=== PATIENT | female | born 1930 | race Hispanic/Latino ===

== ENCOUNTER → 2016-12-18 | Outpatient (CLI) | payer MEDICARE, MEDICAID ==
--- NOTE | 2016-12-20 15:56 | REP ---
LEFT SHOULDER, COMPLETE: 12/18/2016. Clinical history: Trauma, periclavicular shoulder pain. Status post fall. Findings: Three views show a middle one-third to lateral one-third fracture of the shaft of the clavicle. There is soft tissue swelling above it. I do not see significant angulation. AC joint is not widened. Humeral head shows no fracture and the scapula and glenoid intact. Posterior ribs are seen and without focal lesion on this exam. Dual lead pacer is seen. Impression: 1. There is a fracture mid shaft to lateral one-third shaft of the clavicle with a half shaft width inferior displacement of the lateral fragment, but no significant angulation. AC joint with degenerative spurring, but no widening of the joint space. No other visible fracture. Signed by Marco Moyer MD 12/20/2016 05:10 P
--- NOTE | 2016-12-20 16:00 | REP ---
PA CHEST WITH LEFT RIBS: 12/18/2016. Comparison: Chest x-ray 11/30/2013 Clinical history: Trauma. Findings: PA chest. Dual lead pacer again noted with the left midchest with leads in the right atrium and right ventricle. S-shaped thoracolumbar scoliosis dextroconvex upper thoracic, levorotatory lower thoracolumbar spine. Underlying fibrosis and COPD. Heart has left ventricular configuration and some left atrial enlargement. The aorta is calcified at the arch, mildly tortuous, but following the course of the scoliotic spine. No effusion or dense consolidation. No gross pneumothorax. Left ribs: Clavicle shows no visible or displaced fracture. The AC joint with small spurs inferiorly, larger superiorly. There are degenerative changes at the inferior aspect of the glenohumeral joint. Appears to be a gastric PEG tube in the mid abdomen. Only limited views with the two views suggesting some anterolateral left rib fractures, but difficult to confidently discern on these images. I suspect the anterior third, fourth and fifth ribs may have fractures. Acuity unknown. There is some lateral pleural thickening. No effusion or pneumothorax. See the shoulder series report for other bones at shoulder girdle. Impression: 1. 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 No dense consolidation or reagan edema. No gross effusion or PTX. 2. Limited exam as the patient could not be positioned. I suspect anterior third, fourth and fifth ribs may have fractures. There is an S-shaped thoracolumbar scoliosis. Gastric PEG feeding tube. Signed by Marco Moyer MD 12/20/2016 05:11 P
== END ==
LOC: M ADAMS 10:09
PROVIDERS: ATTEND Physician Assistant
DX: M19.012 Primary osteoarthritis, left shoulder (principal); S42.022A Displaced fracture of shaft of left clavicle, initial encounter for closed fracture; X58.XXXA Exposure to other specified factors, initial encounter; Y92.89 Other specified places as the place of occurrence of the external cause; Y93.89 Activity, other specified; Y99.8 Other external cause status; J44.9 Chronic obstructive pulmonary disease, unspecified; J84.10 Pulmonary fibrosis, unspecified; Z95.0 Presence of cardiac pacemaker; Z96.89 Presence of other specified functional implants

== ENCOUNTER → 2017-01-13 | Outpatient (REF) | payer MEDICARE, MEDICAID | LOC: M LAB REF 13:37 | PROVIDERS: ATTEND Nurse Practitioner Adult Health | DX: R19.7 Diarrhea, unspecified (principal) ==

== ENCOUNTER → 2017-05-27 | Outpatient (REF) | payer MEDICARE, MEDICAID ==
[2017-05-29 08:07] LABS: LDL DIRECT 94 mg/dL (0-99)
== END ==
LOC: M LAB REF 16:32
DX: E78.00 Pure hypercholesterolemia, unspecified (principal)
CPT/HCPCS: 83721

== ENCOUNTER 2017-08-03 12:08 | Emergency (ER) | payer MEDICARE, MEDICAID | END 2017-08-03 13:07 | disposition home or self-care (01) | LOC: M ED 12:08 | DX: K94.29 Other complications of gastrostomy (principal); E11.9 Type 2 diabetes mellitus without complications | CPT/HCPCS: 99283 ==

== ENCOUNTER 2018-05-10 09:38 | Inpatient (IN) | payer MEDICARE, MEDICAID ==
[~2018-05-10] VITALS: Ht 147.3 cm; Wt 56.7 kg
[~2018-05-10 09:38] MED LIST: GLIP10TA6 PO; METOCLOPRAMIDE INJ 10MG/2ML VIAL (J2765) IV PRN; ONDANSETRON 4MG/2ML VIAL (J2405) IV PRN; PROMETHAZINE INJ 25 MG/ML VIAL (J2550) IV PRN; RAMI1CAP26 PO; SITA50TAB PO; TOUJ1.2I SC
[2018-05-10 09:56] VITALS: BP 144/78
[2018-05-10] MEDS ORDERED: DEXTROSE 50% 50 ML SYRINGE IV PRN (10:30)
[2018-05-10] MEDS ORDERED: GLUCOSE 4 GM CHEW TABLET PO PRN (10:30)
[2018-05-10] MEDS ORDERED: GLUCAGON FOR INJ 1 MG VIAL (J1610) SC PRN (10:30)
[2018-05-10] MEDS ORDERED: CHIL1SUS2 PEG (10:54)
[2018-05-10] MEDS ORDERED: LIDO2.5C15 TOP (10:54)
[2018-05-10] MEDS ORDERED: NYST1POW9 TOP (10:54)
[2018-05-10] MEDS ORDERED: TRAM50TA2 PEG (10:54)
[2018-05-10] MEDS ORDERED: TOUJ1.2I SC (10:54)
[2018-05-10] MEDS ORDERED: GLIP10TA6 PEG (10:54)
[2018-05-10] MEDS ORDERED: RAMI1CAP26 PEG (10:54)
[2018-05-10] MEDS ORDERED: SITA50TAB PEG (10:54)
[2018-05-10] MEDS: HumaLOG INSULIN (NovoLOG) PER UNIT SC SCH ×2 (12:00→17:03)
[2018-05-10] MEDS ORDERED: OCTREOTIDE ACETATE 100 MCG/ML VIAL (J2354) IV SCH (12:00)
[2018-05-10 14:00] VITALS: BP 142/78
[2018-05-10] MEDS ORDERED: LIDOCAINE 1% MDV 20ML VIAL As Ordered ONE (14:38)
[2018-05-10] MEDS: SODIUM CHLORIDE 0.9% INJ 10 ML SYR IV SCH (17:26)
[2018-05-10] MEDS: PANTOPRAZOLE 40MG INJ (PROTONIX) (C9113) IV SCH (17:26)
[2018-05-10] MEDS: OCTREOTIDE ACETATE 100 MCG/ML VIAL (J2354) IV SCH (17:26)
[2018-05-10 18:00] VITALS: BP 130/78
[2018-05-10] MEDS ORDERED: FAT EMULSION IV 20% 500 ML IV SCH (18:00)
[2018-05-10] MEDS ORDERED: MULTIVITAMIN -ADULT INJECTION 10 ML, CR/CU/SE/MN/ZN INJ 1 ML in AMINO AC/ELECTROLYTE/DE... IV SCH (18:00)
[2018-05-10] MEDS ORDERED: HumaLOG INSULIN (NovoLOG) PER UNIT SC SCH (18:00)
[2018-05-10 22:00] VITALS: BP 154/64
[2018-05-11] MEDS: OCTREOTIDE ACETATE 100 MCG/ML VIAL (J2354) IV SCH ×3 (00:39→17:55)
[2018-05-11] MEDS: HumaLOG INSULIN (NovoLOG) PER UNIT SC SCH ×4 (00:40→18:27)
[2018-05-11] MEDS: SODIUM CHLORIDE 0.9% INJ 10 ML SYR IV PRN (00:41)
[2018-05-11] MEDS: ACETAMINOPHEN TAB 650MG DOSE (2X325MG) PO PRN ×2 (01:12→18:13)
[2018-05-11 02:00] VITALS: BP 150/60
[2018-05-11 06:00] VITALS: BP 149/69
[2018-05-11] MEDS: SODIUM CHLORIDE 0.9% INJ 10 ML SYR IV SCH ×2 (07:23→18:00)
[2018-05-11] MEDS: PANTOPRAZOLE 40MG INJ (PROTONIX) (C9113) IV SCH (08:29)
--- NOTE | 2018-05-11 09:14 | REP ---
DOUBLE LUMEN PICC LINE INSERTION: The patient was referred for placement of double lumen PICC line. Informed consent was obtained from the patient. The right cephalic vein was identified in the upper arm using the Spine[employer] ultrasound device. Under sterile conditions and after satisfactory administration of local anesthesia, a double lumen PICC line was inserted and the tip was positioned into the right subclavian vein so that it would not interfere with the patient's pacemaker wires. Both lumens were flushed with heparinized solution and the skin entrance site was stabilized with appropriate dressings. Hemostasis was obtained and there were no immediate complications. 0.9 minutes fluoroscopy time utilized for the procedure. Electronically Signed by Andrew Ospina MD 05/11/2018 11:45 A
[2018-05-11 10:00] VITALS: BP 140/68
[2018-05-11 14:00] VITALS: BP 158/70
[2018-05-11 18:00] VITALS: BP 138/74
[2018-05-11] MEDS ORDERED: AMINO AC/ELECTROLYTE/DEX/CALC 2,000 ML IV SCH (18:00)
[2018-05-11] MEDS ORDERED: HumaLOG INSULIN (NovoLOG) PER UNIT SC SCH (18:00)
[2018-05-11] MEDS ORDERED: FAT EMULSION IV 20% 500 ML IV SCH (18:00)
--- NOTE | 2018-05-11 19:21 | IPN ---
DATE: 05/11/2018 The patient seems to be making some good progress overnight. She has been on TPN. She has been nothing by mouth with NG tube to gravity for this gastric fistula that has occurred overall the amount of drainage has substantially decreased. She is not having any pain at this site and when I look at the G tube site. It is almost completely healed at this time this with 24 hours of being nothing by mouth. She has been afebrile in no cellulitis or inflammation. It does not really seem to be much drainage at the site and the nurses have not changed the dressing today. IMPRESSION AND PLAN: The patient has a gastrocutaneous fistula and from my standpoint I do feel that it is warranted to keep her nothing by mouth TPN for right now. I do feel that it would be most reasonable to give her another several days of nothing by mouth until we get comfortable enough that she is not having any drainage then will clamp the G tube for 24 hours and see if that makes a difference and if that does not make any difference then slowly turning on some tube feeds may be the next step. She understands our current plan and will start out with continued nothing by mouth for right now.
[2018-05-11 22:00] VITALS: BP 144/68
[2018-05-12] MEDS: OCTREOTIDE ACETATE 100 MCG/ML VIAL (J2354) IV SCH ×3 (01:15→19:26)
[2018-05-12] MEDS: HumaLOG INSULIN (NovoLOG) PER UNIT SC SCH ×4 (01:15→19:26)
[2018-05-12 02:00] VITALS: BP 140/72
[2018-05-12 06:00] VITALS: BP 138/74
[2018-05-12] MEDS: SODIUM CHLORIDE 0.9% INJ 10 ML SYR IV SCH ×2 (06:00→19:27)
[2018-05-12] MEDS: PANTOPRAZOLE 40MG INJ (PROTONIX) (C9113) IV SCH (09:22)
[2018-05-12 10:00] VITALS: BP 152/70
--- NOTE | 2018-05-12 11:10 | IPN ---
DATE: 05/12/2018 The patient seems to be making some good progress at this time. Her drainage out of her previous gastrostomy tube site has been much better, slowing down very well and she has had no other complaints at this time. No pain at the site and it is almost completely healed. I anticipate probably another 24 hours and there will not be any significant drainage at this site and possibly we can start clamping the G tube. I would recommend that tomorrow we clamp it for 24 hours and if she tolerates this without any drainage, then we can start up tube feedings at 25 mL an hour and watch that overnight as well and if she does well with continuous feeds may be able to start her up on some bolus feeds the next day. But overall at this point, I think where making some good progress and I am hoping that this will settle down/heal up. The patient did not want any operative intervention for the hernia repair, etc. and if we want to give this a chance to heal I anticipate that we will need to continue on this relatively conservative/slow course for allowing this to heal.
[2018-05-12 14:00] VITALS: BP 144/64
[2018-05-12 18:00] VITALS: BP 152/72
[2018-05-12] MEDS ORDERED: FAT EMULSION IV 20% 500 ML IV SCH (18:00)
[2018-05-12] MEDS ORDERED: MULTIVITAMIN -ADULT INJECTION 10 ML, CR/CU/SE/MN/ZN INJ 1 ML in AMINO AC/ELECTROLYTE/DE... IV SCH (18:00)
[2018-05-12 22:00] VITALS: BP 142/75
[2018-05-13] MEDS: HumaLOG INSULIN (NovoLOG) PER UNIT SC SCH ×4 (00:16→18:06)
[2018-05-13] MEDS: OCTREOTIDE ACETATE 100 MCG/ML VIAL (J2354) IV SCH ×3 (00:16→17:00)
[2018-05-13 02:00] VITALS: BP 140/70
[2018-05-13] MEDS: SODIUM CHLORIDE 0.9% INJ 10 ML SYR IV SCH ×2 (05:26→17:02)
[2018-05-13 06:00] VITALS: BP 145/70
[2018-05-13] MEDS: PANTOPRAZOLE 40MG INJ (PROTONIX) (C9113) IV SCH (09:13)
[2018-05-13 10:00] VITALS: BP 135/57
--- NOTE | 2018-05-13 12:43 | IPNPDOC ---
Text Note Date of Service The patient was seen on 05/13/18. NOTE No acute events overnight. Her abd wound is much improved. There is no more drainage at all, and the dressing is completely dry. Denies nausea, emesis, fevers, or pains. VSSAF currently drain - 50 BM - 1 NAD abd - soft, nt, nd, g-tube fistula site is completely dry without any signs of inflammation or drainage A) 87y/o female with gastric fistula that appears to be resolved P) TPN clamp g tube today, and will start tube feeds tomorrow if tolerating it clamped. Pardeep Herman DO VS,Fishbone, I+O VS, Fishbone, I+O Vital Signs Date Time Temp Pulse Resp B/P (MAP) Pulse Ox O2 Delivery O2 Flow Rate FiO2 05/13/18 10:00 98.3 60 17 135/57 (83) 98 Room Air I&O- Last 24 Hours up to 6 AM 05/13/18 06:00 Intake Total 0 ml Output Total 125 ml Balance -125 ml PRABHU HERMAN DO May 13, 2018 12:43
[2018-05-13 14:00] VITALS: BP 140/55
[2018-05-13 18:00] VITALS: BP 145/59
[2018-05-13] MEDS ORDERED: AMINO AC/ELECTROLYTE/DEX/CALC 2,000 ML IV SCH (18:00)
[2018-05-13] MEDS ORDERED: FAT EMULSION IV 20% 500 ML IV SCH (18:00)
[2018-05-13 22:00] VITALS: BP 145/74
[2018-05-14] MEDS: HumaLOG INSULIN (NovoLOG) PER UNIT SC SCH ×4 (00:18→17:49)
[2018-05-14] MEDS: OCTREOTIDE ACETATE 100 MCG/ML VIAL (J2354) IV SCH ×3 (00:18→17:49)
[2018-05-14] MEDS: SODIUM CHLORIDE 0.9% INJ 10 ML SYR IV PRN ×2 (00:19→21:56)
[2018-05-14 02:00] VITALS: BP 147/73
[2018-05-14 06:00] VITALS: BP 153/77
[2018-05-14] MEDS: SODIUM CHLORIDE 0.9% INJ 10 ML SYR IV SCH ×2 (06:40→17:49)
[2018-05-14] MEDS: PANTOPRAZOLE 40MG INJ (PROTONIX) (C9113) IV SCH (09:55)
[2018-05-14 10:00] VITALS: BP 150/62
[2018-05-14] MEDS: ACETAMINOPHEN TAB 650MG DOSE (2X325MG) PO PRN (10:24)
--- NOTE | 2018-05-14 11:03 | IPNPDOC ---
Text Note Date of Service The patient was seen on 05/14/18. NOTE No acute events overnight. Her abd wound is improved without drainage. Denies nausea, emesis, fevers, or pains. VSSAF NAD abd - soft, nt, nd, g-tube fistula site is completely dry without any signs of inflammation or drainage A) 87y/o female with gastric fistula that appears to be resolved P) d/c TPN start glucerna 1.2 at 25/hr will d/c home tomorrow Pardeep Herman DO VS,Fishbone, I+O VS, Fishbone, I+O Vital Signs Date Time Temp Pulse Resp B/P (MAP) Pulse Ox O2 Delivery O2 Flow Rate FiO2 05/14/18 10:00 99.4 60 17 150/62 (91) 96 Room Air I&O- Last 24 Hours up to 6 AM 05/14/18 06:00 Intake Total 1140 ml Output Total 0 ml Balance 1140 ml PRABHU HERMAN DO May 14, 2018 11:03
[2018-05-14 14:00] VITALS: BP 151/76
[2018-05-14 18:00] VITALS: BP 143/71
[2018-05-14 22:00] VITALS: BP 144/66
[2018-05-15] MEDS: HumaLOG INSULIN (NovoLOG) PER UNIT SC SCH ×4 (00:31→18:11)
[2018-05-15] MEDS: D5W/0.45% SODIUM CHLORIDE 1,000 ML IV SCH ×2 (00:31→13:20)
[2018-05-15] MEDS: OCTREOTIDE ACETATE 100 MCG/ML VIAL (J2354) IV SCH ×3 (00:38→18:12)
[2018-05-15 02:00] VITALS: BP 138/72
[2018-05-15 06:00] VITALS: BP 130/62
[2018-05-15] MEDS: SODIUM CHLORIDE 0.9% INJ 10 ML SYR IV SCH ×2 (06:00→18:00)
[2018-05-15] MEDS: PANTOPRAZOLE 40MG INJ (PROTONIX) (C9113) IV SCH (08:07)
--- NOTE | 2018-05-15 09:51 | IPNPDOC ---
Text Note Date of Service The patient was seen on 05/15/18. NOTE No acute events overnight. Denies nausea, emesis, fevers, or pains. Last evening her fistula started to open back up and drain tube feeds from it. I had them place the g-tube back to gravity, and we will wait another couple days to restart feeds again. VSSAF NAD abd - soft, nt, nd, g-tube fistula site is completely dry again this am without any signs of inflammation or drainage A) 87y/o female with gastric fistula that opened up again last evening P) restart TPN hold tube feeds will follow Pardeep Herman DO VS,Fishbone, I+O VS, Fishbone, I+O Vital Signs Date Time Temp Pulse Resp B/P (MAP) Pulse Ox O2 Delivery O2 Flow Rate FiO2 05/15/18 06:00 97.6 68 18 130/62 (84) 99 Room Air I&O- Last 24 Hours up to 6 AM 05/15/18 06:00 Intake Total 715 ml Output Total 350 ml Balance 365 ml PRABHU HERMAN DO May 15, 2018 09:51
[2018-05-15 10:00] VITALS: BP 141/62
[2018-05-15 14:00] VITALS: BP 144/65
[2018-05-15] MEDS ORDERED: FAT EMULSION IV 20% 500 ML IV SCH (18:00)
[2018-05-15] MEDS ORDERED: MULTIVITAMIN -ADULT INJECTION 10 ML, CR/CU/SE/MN/ZN INJ 1 ML in AMINO AC/ELECTROLYTE/DE... IV SCH (18:00)
[2018-05-16] MEDS: OCTREOTIDE ACETATE 100 MCG/ML VIAL (J2354) IV SCH ×3 (00:55→17:50)
[2018-05-16] MEDS: HumaLOG INSULIN (NovoLOG) PER UNIT SC SCH ×4 (00:56→17:51)
[2018-05-16] MEDS: SODIUM CHLORIDE 0.9% INJ 10 ML SYR IV PRN (00:56)
[2018-05-16 02:00] VITALS: BP 115/76
[2018-05-16 06:00] VITALS: BP 157/65
[2018-05-16] MEDS: SODIUM CHLORIDE 0.9% INJ 10 ML SYR IV SCH ×2 (07:26→17:52)
[2018-05-16] MEDS: PANTOPRAZOLE 40MG INJ (PROTONIX) (C9113) IV SCH (08:32)
--- NOTE | 2018-05-16 09:45 | IPNPDOC ---
Text Note Date of Service The patient was seen on 05/16/18. NOTE No acute events overnight. Denies nausea, emesis, fevers, or pains. No more drainage from the g-tube site. VSSAF NAD abd - soft, nt, nd, g-tube fistula site is completely dry again this am without any signs of inflammation or drainage, however, there is a dry scab in the middle that I removed and beneath it there is a distinct opening through the skin. A) 87y/o female with gastric fistula P) TPN hold tube feeds will discuss with Dr. Ortega tomorrow when he returns. I fear that she may have epithelialized her fistula tract, and it may not close. He will likely attempt feeds one more time tomorrow, and if that does not work then she will need surgical repair. Pardeep Herman DO VS,[place], I+O VS, Fishbone, I+O Vital Signs Date Time Temp Pulse Resp B/P (MAP) Pulse Ox O2 Delivery O2 Flow Rate FiO2 05/16/18 06:00 96.5 63 18 157/65 (95) 91 Room Air I&O- Last 24 Hours up to 6 AM 05/16/18 06:00 Intake Total 1140 ml Output Total 500 ml Balance 640 ml PRABHU HERMAN DO May 16, 2018 09:45
[2018-05-16 10:00] VITALS: BP 126/60
[2018-05-16 14:00] VITALS: BP 140/62
[2018-05-16 18:00] VITALS: BP 140/82
[2018-05-16] MEDS ORDERED: FAT EMULSION IV 20% 500 ML IV SCH (18:00)
[2018-05-16] MEDS ORDERED: AMINO AC/ELECTROLYTE/DEX/CALC 2,000 ML IV SCH (18:00)
[2018-05-16 22:00] VITALS: BP 160/72
[2018-05-17] MEDS: OCTREOTIDE ACETATE 100 MCG/ML VIAL (J2354) IV SCH ×3 (01:02→17:00)
[2018-05-17] MEDS: HumaLOG INSULIN (NovoLOG) PER UNIT SC SCH ×4 (01:02→17:47)
[2018-05-17] MEDS: SODIUM CHLORIDE 0.9% INJ 10 ML SYR IV PRN (01:03)
[2018-05-17 02:00] VITALS: BP 144/68
[2018-05-17 06:00] VITALS: BP 150/74
[2018-05-17] MEDS: SODIUM CHLORIDE 0.9% INJ 10 ML SYR IV SCH ×2 (06:25→17:36)
[2018-05-17] MEDS: PANTOPRAZOLE 40MG INJ (PROTONIX) (C9113) IV SCH (09:03)
[2018-05-17 10:00] VITALS: BP 124/70
[2018-05-17 14:00] VITALS: BP 144/70
[2018-05-17 18:00] VITALS: BP 120/70
[2018-05-17] MEDS ORDERED: HumaLOG INSULIN (NovoLOG) PER UNIT SC SCH (18:00)
[2018-05-17] MEDS ORDERED: [UNRECOGNIZED DRUG - MIXTURE] IV SCH ×4 (18:00)
[2018-05-17] MEDS ORDERED: FAT EMULSION IV 20% 500 ML IV SCH (18:00)
[2018-05-17 22:00] VITALS: BP 128/70
[2018-05-18] MEDS: OCTREOTIDE ACETATE 100 MCG/ML VIAL (J2354) IV SCH ×3 (00:04→17:57)
[2018-05-18] MEDS: SODIUM CHLORIDE 0.9% INJ 10 ML SYR IV PRN (00:04)
[2018-05-18] MEDS: HumaLOG INSULIN (NovoLOG) PER UNIT SC SCH ×4 (00:04→17:58)
[2018-05-18 02:00] VITALS: BP 150/68
[2018-05-18 06:00] VITALS: BP 149/68
[2018-05-18] MEDS: SODIUM CHLORIDE 0.9% INJ 10 ML SYR IV SCH ×2 (06:03→17:58)
[2018-05-18] MEDS: PANTOPRAZOLE 40MG INJ (PROTONIX) (C9113) IV SCH (09:04)
[2018-05-18 10:00] VITALS: BP 132/52
--- NOTE | 2018-05-18 10:42 | HPE ---
DATE OF ADMISSION: 05/10/2018 HISTORY AND PHYSICAL: Patient is an 87-year-old female that is saw in the office a few weeks ago for a gastrocutaneous fistula. Had a previous gastrostomy tube placed that eroded through the abdominal wall causing a partially gastric incarcerated hernia in the epigastric area with a gastric fistula present. Had a secondary gastrostomy tube placed lateral to this. It has been unfortunately leaking out this gastrostomy tube. Had the PEG tube placed for a history of achalasia and had refused operative intervention for this and the family was trying avoid operative intervention unless absolutely necessary. She was seen in my office. We made some recommendations, some changes and a week later did not see any significant improvement except for some decreased drainage after having a few days of essentially a clear liquid diet via the gastrostomy (G) tube for hydration, and the patient's family noticed that the drainage decreased substantially. The hole seemed to start the heal and presents now for admission and discussion of trying to get this fistula to heal without operative intervention. Although, patient does definitely have some pain and discomfort when she is active, moving and bending over in the epigastric area. Most of the discussion is through her daughter who is translating for me. The past medical history is significant for a history of hypertension, hyperlipidemia, diabetes mellitus, heart disease, pacemaker implant, cholecystectomy, dilation and curettage, cataract surgery. Medications include the following: - glipizide - Glucerna - Januvia - ramipril - Toujeo - tramadol - as needed Tylenol PHYSICAL EXAMINATION: Reveals an 87-year-old female who looks stated age. HEENT is unremarkable. Neck: Supple without adenopathy. Lungs are clear to auscultation without crackles, wheezes or rhonchi. Heart is regular with a few irregular beats. Abdomen is soft, nondistended, nontender except around the previous G tube site that has some macerated skin in this area. Although, it actually looks better than it had when I saw her week ago on 05/01/2018, and decreased drainage. Her other gastrostomy tube is intact and functioning well. Otherwise, her abdomen is soft, nontender. IMPRESSION/PLAN: Patient has an epigastric hernia and gastric fistula. At this point, it appears that the site probably will heal with being nothing by mouth. I do feel that it may take some prolonged time and given the poor nutritional state that she has had prior to this, although without significant weight loss since the G tubes have been placed, my thought is that this skin should heal over. Unfortunately, I can feel the stomach right underneath this and thus it makes the fistula tract very short, which implies that it would be much more difficult to get this to heal and stay closed. However, I do feel that it is a reasonable option for her. They still would like to avoid operative intervention unless absolutely necessary. However, would be amenable to this should this continue to drain given the pain and discomfort that she has with it and the difficulty with care at the site. Otherwise, at this point, we will keep her nothing by mouth, IV fluids, and give her some octreotide to decrease his secretions. Will also start her on some total parenteral nutrition (TPN) and get a peripherally inserted central catheter (PICC) line placed. Will continue her on her meds as previously as necessary. Will see how she does. Hopefully closing up this hole and then once it is closed for 24-48 hours, then we will clamp the G tube, and then after clamping for 24 hours I would like to start her on some tube feeds on a constant feeding, and if she tolerates this, does not open up, then I anticipate we can try some bolus feeds and then discharge her thereafter. However, if this does not close or opens back up, I anticipate she will need some operative intervention, i.e. hernia repair, repair of gastric fistula.
--- NOTE | 2018-05-18 10:49 | IPN ---
DATE: 05/18/2018 The patient seems to be continuing to do well. Her daughter is here today and we have discussed more about the operative intervention that I plan on for her and, more importantly, given her medical issues I do feel that despite being a relatively reasonable operative candidate and I do feel that this is much more of an urgent case that operative intervention is necessary at this time, the recommendation will be for repair of the hernia. The big question that we have at this time and a lot of it will be determined intraoperatively is whether this fistula tract can be closed with some imbrication of the gastric wall or whether just stapling off a little corner of the stomach will be indicated at that time. In any case, I anticipate to repair the hernia and if there is no spillage and it is a relatively clean site we may be able to place some mesh as well with a small operative risk for perioperative infection. The daughter agrees to proceed with this and will discuss this further with her mother over the day and we will talk about this tomorrow in the preop holding area and answer any questions as necessary. They agree to proceed with operative repair tomorrow.
--- NOTE | 2018-05-18 11:06 | IPN ---
DATE: 05/17/2018 Patient had attempted restarting of the feeds after a few hours. However, the patient developed some bulging in the epigastric area and then all of a sudden decompressed via this fistula tract. I anticipate what happened is that the stomach gets incarcerated and once it gets incarcerated within this area and she moves it is similar to a closed loop that continues to fill up and then just finds this weak spot in the abdominal wall and essentially decompresses through this area. Unfortunately after an extensive discussion with the family, I do feel that it is reasonable to proceed with operative intervention for this and we will see if we cannot get her on the schedule for the next 24-48 hours, either or Tuesday this week, and thus, she has been back to nothing by mouth after she started draining again, and at this point it appears to have sealed over. There is nothing draining from it today and her abdomen is soft and it is nontender. She has been tolerating her total parenteral nutrition (TPN). We will continue her on the TPN, continue with nothing by mouth for right now and then we will plan on operative intervention with repair of this hernia.
--- NOTE | 2018-05-18 11:26 | CR.PDOC ---
General Date of Consultation: May 18, 2017 Consultation REASON FOR CONSULTATION/CHIEF COMPLAINT: Pre-op clearance prior to Epigastric hernia surgery Consult Requested by Dr Ortega HISTORY OF PRESENT ILLNESS: 87 y/o female who presented to the hospital for surgical repair of gastric fistula and epigastric hernia secondary to PEG tube placement for history of achalasia. ALLERGIES: Please see below. HOME MEDICATIONS: Please see below. PAST MEDICAL HISTORY: HTN, DLP, DM2, s/p pacemaker, CAD PAST SURGICAL HISTORY: cataract surgery, d&C, cholecystectomy, pacemaker placement FAMILY HISTORY: Non-contributory SOCIAL HISTORY: non-contributory REVIEW OF SYSTEMS: There is no family in the room present one exam, patient speaks minimal Tamazight, ROS difficult to obtain as such Patient can signal and verbalize no abdominal pain nor chest pain. PHYSICAL EXAMINATION: VITAL SIGNS: Please see below. GENERAL APPEARANCE: comfortable, laying in bed watching television HEENT: EOMI, nares patent b/l, moist mucus membranes RESPIRATORY: CTA b/l, no wheezing, rales or rhonchi CARDIOVASCULAR: normal s1 and s2., no murmurs, rubs or gallops ABDOMEN: soft, no distension, no rebound, no guarding, no pain to palpation, na bsx4, PEG in place without blood or pus exudation, appears clean and intact EXTREMITIES: no cyanosis, swelling or mottling NEUROLOGICAL: without focal deficit PSYCHIATRIC: affect appears to be appropriate LABORATORY DATA: Please see below. ASSESSMENT/PLAN: 1. DM2 -patients BS have not been controlled in house, she is on TPN and obtaining insulin through this however we will give 1x dose of Levermir long acting now 20 units SQ. Hold this tomorrow, will not schedule for AM. 2. HTN -BP appears acceptable, noted she is not on home medications in house -continue to monitor for now -EKG pending -CXR for pre-operative clearance pending 3. Chronic pain -patients home tramadol is not continued in house, she appears comfortable on exam today and not in any pain or discomfort 4. GERD/N/V -c/w Zofran and pantoprazole 5. Epigastric hernia and gastric fistula for surgical repair. patient is on TPN, NPO. Management as per surgery. 6. Preop clearance will get CXR and EKG. Patient does not have h/o chf, on going angina, no CKD, No h/o TIA or stroke. Provided EKG OK patient is at low cardiac risk for the proposed procedure. Pateint's sugar needs to be better controlled. Vital Signs/I&O Vital Signs Date Time Temp Pulse Resp B/P (MAP) Pulse Ox O2 Delivery O2 Flow Rate FiO2 05/18/18 06:00 98.7 63 18 149/68 (95) 94 05/17/18 18:00 Room Air I&O- Last 24 Hours up to 6 AM 05/18/18 06:00 Intake Total 90 ml Output Total 1323 ml Balance -1233 ml Laboratory Data Labs 24H Laboratory Tests 2 05/17/18 11:43: Bedside Glucose (Misc Panel) 463H 05/17/18 16:37: Bedside Glucose (Misc Panel) 389H 05/17/18 21:30: Bedside Glucose (Misc Panel) 378H 05/17/18 23:36: Bedside Glucose (Misc Panel) 399H 05/18/18 05:28: Bedside Glucose (Misc Panel) 502*H 05/18/18 05:33: Bedside Glucose (Misc Panel) 444H Allergies Coded Allergies: Metformin (Verified Adverse Reaction, Intermediate, SEVERE DIARRHEA, 05/10/18) NSAIDs (Verified Adverse Reaction, Intermediate, INCREASED SED RATE, 05/10/18) Home Medications Scheduled (Lidocaine/Prilocaine 2.5-2.5 %) 1 Cre Cre, 1 APLCT TOP BID, (Reported) APPLY AROUND ABDOMINAL WOUND (Toujeo Solostar) 300 Unit/Ml Inj, 28 UNIT SC DAILY, (Reported) Glipizide (Glipizide) 10 Mg Tab, 10 MG PEG BID, (Reported) Ramipril (Ramipril) 10 Mg Cap, 10 MG PEG DAILY, (Reported) Sitagliptin (Januvia) 50 Mg Tab, 50 MG PEG DAILY, (Reported) Scheduled PRN Acetaminophen (Childrens Acetaminophen) 160 Mg/5 Ml Susp, 15 ML PEG Q6H PRN for PAIN, (Reported) Nystatin (Nystatin Powder) 100,000 Unit/Gm Pow, 1 APLCT TOP QID PRN for RASH/ITCHING, (Reported) APPLY AROUND ABDOMINAL WOUND Tramadol HCl (Tramadol HCl) 50 Mg Tab, 50 MG PEG Q6H PRN for PAIN, (Reported) GME ATTESTATION GME ATTESTATION My faculty preceptor for this patient encounter was physically present during the encounter and was fully available. All aspects of the patient interview, examination, medical decision making process, and medical care plan development were reviewed and approved by the faculty preceptor. The faculty preceptor is aware and concurs with the plan as stated in the body of this note and will attest to such by his/her cosignature. YUMIKO MENDOZA DO May 18, 2018 11:26 ESTEE LIRA MD May 19, 2018 13:21
[2018-05-18] MEDS ORDERED: LEVEMIR (INSULIN DETEMIR) 1 UNITS/0.01ML SC ONE (12:00)
--- NOTE | 2018-05-18 13:59 | REP ---
Portable chest x-ray: Sitting AP view. History: Preoperative clearance. Comparison radiographs are from December 18, 2016. Findings: There is a bipolar pacemaker in the right heart via the left side as before. Right hemidiaphragm remains somewhat elevated. There is fissural thickening versus linear fibrosis in the right base unchanged. Interstitial markings are increased consistent with mild interstitial fibrosis also unchanged. There is a midline catheter visible on the right terminating in the subclavicular region. There are old healed rib fractures on the left posteriorly not previously observed. Clips are noted in the right upper quadrant of the abdomen. Impression: Interstitial fibrosis pattern. Bipolar pacemaker. Midline catheter on the right. Electronically Signed by Fransico Urena MD 05/18/2018 05:07 P
[2018-05-18 14:00] VITALS: BP 122/68
[2018-05-18] MEDS ORDERED: HumaLOG INSULIN (NovoLOG) PER UNIT SC ONE (15:00)
[2018-05-18 18:00] VITALS: BP 138/72
[2018-05-18] MEDS ORDERED: AMINO AC IV SCH ×4 (18:00)
[2018-05-18] MEDS ORDERED: FAT EMULSION IV 20% 500 ML IV SCH ×2 (18:00)
[2018-05-18] MEDS ORDERED: CALC IV SCH ×4 (18:00)
[2018-05-18] MEDS ORDERED: ELECTROLYTE IV SCH ×4 (18:00)
[2018-05-18] MEDS ORDERED: DEX IV SCH ×4 (18:00)
[2018-05-18] MEDS ORDERED: INSULIN HUMAN REGULAR IV SCH ×4 (18:00)
--- NOTE | 2018-05-18 19:37 | ECGEPIP ---
Stationary ECG Study [facility] Test Date: 2018-05-18 Pat Name: GANESH MATHIAS Department: Room: [place] [address] Gender: F [employer] Skid[employer] Operator: JAZMIN : [id number] Requested By: YUMIKO MENDOZA Order Number: [id number] Reading MD: Henry Alcantara Measurements Intervals [place] Rate: 60 P: 97 MT: 229 QRS: -22 QRSD: 97 T: 92 QT: 393 QTc: 395 Interpretive Statements Consistent atrially paced rhythm Spontaneous AV conduction with first-degree AV block Left axis deviation with LVH by Jonathon criteria Atrial pacing new from 11/11/13. More prominent voltage in aVL and strain pattern is also new. Could not rule out myocardial ischemia Clinical correlation advised Electronically Signed On 05-18-2018 19:37:07 EST by Henry Alcantara
[2018-05-18] MEDS: LEVEMIR (INSULIN DETEMIR) 1 UNITS/0.01ML SC SCH (20:57)
[2018-05-18 22:00] VITALS: BP 148/66
[2018-05-19] VITALS (13 sets, daily range): BP systolic 115–164; BP diastolic 42–72
[2018-05-19] MEDS: HumaLOG INSULIN (NovoLOG) PER UNIT SC SCH ×4 (00:40→18:13)
[2018-05-19] MEDS: OCTREOTIDE ACETATE 100 MCG/ML VIAL (J2354) IV SCH ×3 (00:40→18:13)
[2018-05-19] MEDS: SODIUM CHLORIDE 0.9% INJ 10 ML SYR IV PRN (00:41)
[2018-05-19] MEDS: SODIUM CHLORIDE 0.9% INJ 10 ML SYR IV SCH ×2 (05:37→17:48)
[2018-05-19 06:02] LABS: HEMATOCRIT 37.7 % (36.0-47.0); HEMOGLOBIN 12.3 g/dl (12.0-15.5); MEAN CORPUSCULAR HEMOGLOBIN 29.3 pg (27.0-33.0); MEAN CORPUSCULAR HGB CONC 32.6 g/dl (32.0-36.5); MEAN CORPUSCULAR VOLUME 89.8 fl (80.0-96.0); PLATELET COUNT, AUTOMATED 215 10^3/uL (150-450); WHITE BLOOD COUNT 10.6 10^3/uL (4.0-10.0)
[2018-05-19 06:28] LABS: ALBUMIN 2.8 GM/DL (3.2-5.2); ALT/SGPT 19 U/L (12-78); BILIRUBIN,TOTAL 0.3 MG/DL (0.2-1.0); BLOOD UREA NITROGEN 33 MG/DL (7-18); CALCIUM LEVEL 8.8 MG/DL (8.8-10.2); CARBON DIOXIDE LEVEL 25 MEQ/L (21-32); CHLORIDE LEVEL 103 MEQ/L (98-107); CREATININE FOR GFR 0.92 MG/DL (0.55-1.30); GLOMERULAR FILTRATION RATE > 60.0 (>32); GLUCOSE, FASTING 316 MG/DL (70-100); POTASSIUM SERUM 4.1 MEQ/L (3.5-5.1); SODIUM LEVEL 136 MEQ/L (136-145); TOTAL PROTEIN 7.2 GM/DL (6.4-8.2)
--- NOTE | 2018-05-19 08:28 | IPNPDOC ---
Subjective Date Seen The patient was seen on 05/19/18. 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 sugars better controlled. No fevers or chills, no chest pain or sob, no abdominal pain , nausea or vomiting. General: Reports: Fatigue; Denies: Chills Cardiovascular: Denies: Chest Pain Gastrointestinal: Denies: Nausea, Abdominal Pain Psych: Reports: Mood Normal Objective Physical Examination General Exam: Positive: Alert, Cooperative, No Acute Distress ENT Exam: Positive: Mucous membr. 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 Tried this with bowel rest and TPN and npo status for several days. And the drainage had stopped but anromy feeding thostd it looked like that the fistula had closed but after restarting gastrostomy feeding fistula drainage again started and the epigastric hernia again reappeared so it was felt that surgical repair of the hernia and closure of the fistula is required. Hospitalist service was consulted for preop clearance. Preoperative clearance -EKG and chest x-ray reviewed, sugars better controlled this am. Patient at intermediate cardiac risk for the proposed procedure. Patient medically optimized at this time for the procedure -patient seen today this afternoon after surgical procedure, seems comfortable, no abdominal pain, surgical sites on abdomen G tube seem clean and intact, pain mgmt as per surgery orders DM2 -patients BS have not been controlled in house, she is on TPN and obtaining insulin through this -s/p 1x dose of Levermir long acting now 20 units SQ yesterday, have scheduled BID dosing now -BS sugars better today. will increase insulin in TPN HTN -BP appears acceptable -continue to monitor for now -EKG appreciated and reviewed, no concerning findings -CXR for pre-operative clearance unremarkable Chronic pain -patients home tramadol is not continued in house, she appears comfortable on exam again today and not in any pain or discomfort GERD/N/V -c/w Zofran and pantoprazole Plan/VTE VTE Prophylaxis Ordered?: Yes VS, I&O, 24H, Fishbone Vital Signs/I&O Vital Signs Date Time Temp Pulse Resp B/P (MAP) Pulse Ox O2 Delivery O2 Flow Rate FiO2 05/19/18 06:00 97.7 63 18 148/70 (96) 95 05/17/18 18:00 Room Air I&O- Last 24 Hours up to 6 AM 05/19/18 06:00 Intake Total 2400 ml Output Total 2345 ml Balance 55 ml Laboratory Data 24H LABS Laboratory Tests 2 05/18/18 12:44: Bedside Glucose (Misc Panel) 483H 05/18/18 13:19: Bedside Glucose (Misc Panel) 511*H 05/18/18 14:24: Bedside Glucose (Misc Panel) 514*H 05/18/18 14:36: Bedside Glucose Confirm (Misc) 548*H 05/18/18 15:14: Bedside Glucose (Misc Panel) 411H 05/18/18 17:04: Bedside Glucose (Misc Panel) 382H 05/18/18 18:57: Bedside Glucose (Misc Panel) 391H 05/18/18 20:39: Bedside Glucose (Misc Panel) 367H 05/19/18 00:13: Bedside Glucose (Misc Panel) 330H 05/19/18 05:41: Nucleated Red Blood Cells % (auto) 0.0, Anion Gap 8, Glomerular Filtration Rate > 60.0, Blood Urea Nitrogen 33H, Creatinine 0.92, Sodium Level 136, Potassium Level 4.1, Chloride Level 103, Carbon Dioxide Level 25, Calcium Level 8.8, Aspartate Amino Transf (AST/SGOT) 13, Alanine Aminotransferase (ALT/SGPT) 19, Alkaline Phosphatase 66, Total Bilirubin 0.3, Total Protein 7.2, Albumin 2.8L, Albumin/Globulin Ratio 0.64L CBC/BMP Laboratory Tests 05/19/18 05:41 Red Blood Count 4.20, Mean Corpuscular Volume 89.8, Mean Corpuscular Hemoglobin 29.3, Mean Corpuscular Hemoglobin Concent 32.6, Red Cell Distribution Width 12.5, Calcium Level 8.8, Aspartate Amino Transf (AST/SGOT) 13, Alanine Aminotransferase (ALT/SGPT) 19, Alkaline Phosphatase 66, Total Bilirubin 0.3, Total Protein 7.2, Albumin 2.8 L GME ATTESTATION GME ATTESTATION My faculty preceptor for this patient encounter was physically present during the encounter and was fully available. All aspects of the patient interview, examination, medical decision making process, and medical care plan development were reviewed and approved by the faculty preceptor. The faculty preceptor is aware and concurs with the plan as stated in the body of this note and will attest to such by his/her cosignature. YUMIKO MENDOZA DO May 19, 2018 08:28 ESTEE LIRA MD May 19, 2018 13:34
[2018-05-19] MEDS: PANTOPRAZOLE 40MG INJ (PROTONIX) (C9113) IV SCH (08:45)
[2018-05-19] MEDS: LEVEMIR (INSULIN DETEMIR) 1 UNITS/0.01ML SC SCH ×2 (08:46→21:48)
[2018-05-19] MEDS ORDERED: GLYCOPYRROLATE INJ 0.2 MG/ML 2 ML VIAL As Ordered ONE (09:18)
[2018-05-19] MEDS ORDERED: dexameTHASONE 4 MG/ML 1ML VIAL (J1100) As Ordered ONE (09:18)
[2018-05-19] MEDS ORDERED: NEOSTIGMINE 10 MG/10 ML VIAL (J2710) As Ordered ONE (09:18)
[2018-05-19] MEDS ORDERED: PROPOFOL 200 MG/20 ML VIAL As Ordered ONE (09:18)
[2018-05-19] MEDS ORDERED: LIDOCAINE 2% INJ 100 MG/5 ML SDV (FOR ANES.) As Ordered ONE (09:18)
[2018-05-19] MEDS ORDERED: ROCURONIUM BROMIDE 50 MG/5 ML VIAL As Ordered ONE (09:18)
[2018-05-19] MEDS ORDERED: ONDANSETRON 4MG/2ML VIAL (J2405) As Ordered ONE (09:18)
[2018-05-19] MEDS ORDERED: MIDAZOLAM INJ 2 MG/2 ML VIAL (J2250) As Ordered ONE (09:19)
[2018-05-19] MEDS ORDERED: fentaNYL 100 MCG/2 ML INJECTION (J3010) As Ordered ONE ×2 (09:19→10:58)
[2018-05-19] MEDS ORDERED: BUPIVACAINE/EPIN 0.25% 30 ML VIAL As Ordered ONE (09:47)
[2018-05-19] MEDS ORDERED: BUPIVACAINE LIPOSOME/PF 1.3% 20ML VIAL (13.3MG/ML)(EXPAREL)(C9290 PER1MG) As Ordered ONE (09:48)
[2018-05-19] MEDS ORDERED: ceFAZolin 1GM INJ (J0690 PER 500MG) As Ordered ONE (09:56)
[2018-05-19] MEDS ORDERED: HumaLOG INSULIN (NovoLOG) PER UNIT As Ordered ONE ×2 (09:58→12:24)
[2018-05-19] MEDS ORDERED: ePHEDrine SULFATE 25 MG/5 ML(5MG/ML) SYRINGE As Ordered ONE (10:38)
[2018-05-19] MEDS ORDERED: HYDROmorphone HCL 2 MG/ML 1ML VIAL (J1170) As Ordered ONE (11:11)
[2018-05-19] MEDS ORDERED: LABETALOL HCL 100 MG/20 ML VIAL As Ordered ONE (11:47)
[2018-05-19] MEDS ORDERED: NS 1,000 ML IV SCH (11:50)
[2018-05-19] MEDS ORDERED: NALOXONE INJ 0.4 MG/1 ML VIAL (J2310) IV PRN (12:00)
[2018-05-19] MEDS ORDERED: EPIDURAL/PCA KEYS XX PRN (12:00)
[2018-05-19] MEDS ORDERED: diphenhydrAMINE INJ 50MG/ML VIAL (J1200) IV PRN (12:00)
[2018-05-19] MEDS ORDERED: ONDANSETRON 4MG/2ML VIAL (J2405) IV PRN ×2 (12:00→12:30)
[2018-05-19] MEDS ORDERED: IPRATROPIUM 0.5MG/ALBUTEROL 2.5MG INH SOL UD 3ML (DUONEB)(J7620) NEB PRN (12:00)
[2018-05-19] MEDS ORDERED: NALBUPHINE HCL 10 MG/ML AMP (J2300) IV PRN (12:00)
[2018-05-19] MEDS ORDERED: MORPHINE 1MG/ML IN 0.9% NACL 100ML IV BAG IV PRN (12:00)
[2018-05-19] MEDS ORDERED: MORPHINE 1MG/ML IN 0.9% NACL 100ML IV BAG As Ordered ONE (12:29)
[2018-05-19] MEDS ORDERED: PERCOCET 5MG/325MG TAB PO PRN (12:30)
[2018-05-19] MEDS ORDERED: fentaNYL 100 MCG/2 ML INJECTION (J3010) IV PRN (12:30)
[2018-05-19] MEDS ORDERED: HumaLOG INSULIN (NovoLOG) PER UNIT SC ONE (12:30)
[2018-05-19] MEDS ORDERED: HYDROMORPHONE HCL 0.5 MG/ 0.5 ML SYRINGE (J1170 PER 1) IV PRN (12:30)
[2018-05-19] MEDS ORDERED: LR 1,000 ML IV SCH (12:30)
[2018-05-19] MEDS: hydrALAZINE INJ 20 MG/ML VIAL IV SCH ×2 (13:15→13:20)
[2018-05-19] MEDS: LABETALOL HCL 100 MG/20 ML VIAL IV SCH ×3 (13:15→13:25)
[2018-05-19] MEDS: IPRATROPIUM 0.5MG/ALBUTEROL 2.5MG INH SOL UD 3ML (DUONEB)(J7620) NEB SCH ×2 (13:19→20:00)
[2018-05-19] MEDS: ERTAPENEM SODIUM 1 GM in NS MINI-BAG PLUS 50 ML IV SCH (14:20)
[2018-05-19] MEDS ORDERED: [UNRECOGNIZED DRUG - MIXTURE] IV SCH ×4 (18:00)
[2018-05-19] MEDS ORDERED: FAT EMULSION IV 20% 500 ML IV SCH (18:00)
[2018-05-20] MEDS ORDERED: HumaLOG INSULIN (NovoLOG) PER UNIT SC ONE (01:15)
[2018-05-20] MEDS: HumaLOG INSULIN (NovoLOG) PER UNIT SC SCH ×5 (01:25→23:57)
[2018-05-20] MEDS: OCTREOTIDE ACETATE 100 MCG/ML VIAL (J2354) IV SCH ×2 (01:57→09:53)
[2018-05-20 02:00] VITALS: BP 152/60
[2018-05-20] MEDS: IPRATROPIUM 0.5MG/ALBUTEROL 2.5MG INH SOL UD 3ML (DUONEB)(J7620) NEB SCH ×4 (02:00→20:00)
[2018-05-20 06:00] VITALS: BP 156/62
[2018-05-20] MEDS: SODIUM CHLORIDE 0.9% INJ 10 ML SYR IV SCH ×2 (06:38→17:43)
[2018-05-20] MEDS: LEVEMIR (INSULIN DETEMIR) 1 UNITS/0.01ML SC SCH ×2 (09:53→22:48)
[2018-05-20] MEDS: PANTOPRAZOLE 40MG INJ (PROTONIX) (C9113) IV SCH (09:53)
[2018-05-20] MEDS: ACETAMINOPHEN TAB 650MG DOSE (2X325MG) PO PRN ×2 (09:59→17:43)
[2018-05-20 10:00] VITALS: BP 158/64
[2018-05-20 11:43] LABS: HEMATOCRIT 36.2 % (36.0-47.0); HEMOGLOBIN 12.1 g/dl (12.0-15.5); MEAN CORPUSCULAR HEMOGLOBIN 29.7 pg (27.0-33.0); MEAN CORPUSCULAR HGB CONC 33.4 g/dl (32.0-36.5); MEAN CORPUSCULAR VOLUME 88.7 fl (80.0-96.0); PLATELET COUNT, AUTOMATED 221 10^3/uL (150-450); RED BLOOD COUNT 4.08 10^6/uL (4.00-5.40); WHITE BLOOD COUNT 17.3 10^3/uL (4.0-10.0)
[2018-05-20 12:02] LABS: CALCIUM LEVEL 8.3 MG/DL (8.8-10.2); CREATININE FOR GFR 1.03 MG/DL (0.55-1.30); GLOMERULAR FILTRATION RATE 54.2 (>32); POTASSIUM SERUM 4.3 MEQ/L (3.5-5.1)
--- NOTE | 2018-05-20 12:19 | IPNPDOC ---
Subjective Date Seen The patient was seen on 05/20/18. Subjective Chief Complaint/HPI . General: Reports: Fatigue; Denies: Chills Constitutional: Reports: Weakness Pulmonary: Denies: Dyspnea, Cough Cardiovascular: Denies: Chest Pain, Palpitations, Edema, Lt Headedness Gastrointestinal: Denies: Nausea, Vomiting, Abdominal Pain, Diarrhea, Constipation Neurological: Reports: Weakness Psych: Reports: Mood Normal Objective Physical Examination General Exam: Positive: Alert, Cooperative, No Acute Distress ENT Exam: Positive: Mucous membr. moist/pink Chest Exam: Negative: Rales, Rhonchi, Wheezing, Diminished Heart Exam: Positive: Normal S1, Normal S2; Negative: Gallops, Murmurs, Rubs Abdomen Exam: Positive: Normal bowel sounds, Soft, Other (g-tube without edema swelling or pus/blood exudation); Negative: Tenderness, Hepatospenomegaly Extremity Exam: Negative: Edema Skin Exam: Positive: Other skin issue (draining samina diaz with serosanguineaous fluid, clean and intact peg tube site without pus or blood exudation or erythema) Psych Exam: Positive: Mental status NL Assessment /Plan Assessment 87 y/o female with DM, HTN, Achalasia, presented to the hospital for 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 Tried this with bowel rest and TPN and npo status for several days. And the drainage had stopped but anromy feeding thostd it looked like that the fistula had closed but after restarting gastrostomy feeding fistula drainage again started and the epigastric hernia again reappeared so it was felt that surgical repair of the hernia and closure of the fistula is required. Hospitalist service was consulted for preop clearance. 1. Preoperative clearance -EKG and chest x-ray reviewed, sugars better controlled this am - Patient at intermediate cardiac risk for the proposed procedure -Patient medically optimized at this time for the procedure -patient seen today this morning, seems comfortable again, no abdominal pain complaints, surgical sites on abdomen G tube seem clean and intact - pain mgmt as per surgery orders 2. DM2 -patients BS have not been controlled in house, she is on TPN and obtaining insulin through this-will discuss with surgery to increase insulin in TPN today, monitor BS, will make further adjustments regarding long acting insulin after checking BS in AM -s/p 1x dose of Levermir long acting, have scheduled BID dosing now-will likely decrease levemir to 10 units tonight after adjustment mades to TPN to increase insulin 3. HTN -BP appears acceptable -continue to monitor for now -EKG appreciated and reviewed, no concerning findings -CXR for pre-operative clearance unremarkable 4. Chronic pain -patients home tramadol is not continued in house, she appears comfortable on exam again today and not in any pain or discomfort -FLUMER for pain -post op pain mgmt per surgery 5. GERD/N/V -c/w Zofran and pantoprazole Plan/VTE VTE Prophylaxis Ordered?: Yes VS, I&O, 24H, Fishbone Vital Signs/I&O Vital Signs Date Time Temp Pulse Resp B/P (MAP) Pulse Ox O2 Delivery O2 Flow Rate FiO2 05/20/18 10:00 97.4 62 24 158/64 (95) 94 Room Air 05/19/18 13:20 2 I&O- Last 24 Hours up to 6 AM 05/20/18 06:00 Intake Total 1740 ml Output Total 1095 ml Balance 645 ml Laboratory Data 24H LABS Laboratory Tests 2 05/19/18 17:55: Bedside Glucose (Misc Panel) 394H 05/19/18 20:35: Bedside Glucose (Misc Panel) 468H 05/20/18 00:19: Bedside Glucose (Misc Panel) 510*H 05/20/18 01:15: Bedside Glucose Confirm (Misc) 497*H 05/20/18 06:12: Bedside Glucose (Misc Panel) 291H 05/20/18 11:29: Bedside Glucose (Misc Panel) 283H 05/20/18 11:31: Nucleated Red Blood Cells % (auto) 0.0, Anion Gap 7L, Glomerular Filtration Rate 54.2, Blood Urea Nitrogen 31H, Creatinine 1.03, Sodium Level 136, Potassium Level 4.3, Chloride Level 104, Carbon Dioxide Level 25, Calcium Level 8.3L CBC/BMP Laboratory Tests 05/20/18 11:31 Red Blood Count 4.08, Mean Corpuscular Volume 88.7, Mean Corpuscular Hemoglobin 29.7, Mean Corpuscular Hemoglobin Concent 33.4, Red Cell Distribution Width 12.5, Calcium Level 8.3 L GME ATTESTATION GME ATTESTATION My faculty preceptor for this patient encounter was physically present during the encounter and was fully available. All aspects of the patient interview, examination, medical decision making process, and medical care plan development were reviewed and approved by the faculty preceptor. The faculty preceptor is aware and concurs with the plan as stated in the body of this note and will attest to such by his/her cosignature. YUMIKO MENDOZA DO May 20, 2018 12:19
[2018-05-20] MEDS: ERTAPENEM SODIUM 1 GM in NS MINI-BAG PLUS 50 ML IV SCH (12:30)
[2018-05-20 14:00] VITALS: BP 152/66
[2018-05-20 18:00] VITALS: BP 150/66
[2018-05-20] MEDS ORDERED: FAT EMULSION IV 20% 500 ML IV SCH (18:00)
[2018-05-20] MEDS ORDERED: AMINO AC IV SCH (18:00)
[2018-05-20] MEDS ORDERED: HumaLOG INSULIN (NovoLOG) PER UNIT SC SCH (18:00)
[2018-05-20] MEDS ORDERED: CALC IV SCH (18:00)
[2018-05-20] MEDS ORDERED: DEX IV SCH (18:00)
[2018-05-20] MEDS ORDERED: INSULIN HUMAN REGULAR IV SCH (18:00)
[2018-05-20] MEDS ORDERED: ELECTROLYTE IV SCH (18:00)
[2018-05-20 22:00] VITALS: BP 150/70
[2018-05-21] VITALS (8 sets, daily range): BP systolic 130–180; BP diastolic 58–82
[2018-05-21] MEDS: ACETAMINOPHEN TAB 650MG DOSE (2X325MG) PO PRN ×3 (00:06→22:54)
[2018-05-21] MEDS: IPRATROPIUM 0.5MG/ALBUTEROL 2.5MG INH SOL UD 3ML (DUONEB)(J7620) NEB SCH ×4 (02:00→21:18)
[2018-05-21] MEDS: SODIUM CHLORIDE 0.9% INJ 10 ML SYR IV SCH ×2 (06:11→17:47)
[2018-05-21] MEDS: HumaLOG INSULIN (NovoLOG) PER UNIT SC SCH ×3 (06:58→17:46)
[2018-05-21] MEDS: PANTOPRAZOLE 40MG INJ (PROTONIX) (C9113) IV SCH (09:51)
[2018-05-21] MEDS: LEVEMIR (INSULIN DETEMIR) 1 UNITS/0.01ML SC SCH ×2 (09:51→23:23)
[2018-05-21 10:39] LABS: HEMATOCRIT 39.9 % (36.0-47.0); HEMOGLOBIN 12.9 g/dl (12.0-15.5); MEAN CORPUSCULAR HEMOGLOBIN 29.7 pg (27.0-33.0); MEAN CORPUSCULAR HGB CONC 32.3 g/dl (32.0-36.5); MEAN CORPUSCULAR VOLUME 91.7 fl (80.0-96.0); PLATELET COUNT, AUTOMATED 233 10^3/uL (150-450); RED BLOOD COUNT 4.35 10^6/uL (4.00-5.40); WHITE BLOOD COUNT 11.7 10^3/uL (4.0-10.0)
[2018-05-21 10:59] LABS: BLOOD UREA NITROGEN 23 MG/DL (7-18); CALCIUM LEVEL 8.6 MG/DL (8.8-10.2); CARBON DIOXIDE LEVEL 27 MEQ/L (21-32); CHLORIDE LEVEL 105 MEQ/L (98-107); CREATININE FOR GFR 0.85 MG/DL (0.55-1.30); GLOMERULAR FILTRATION RATE > 60.0 (>32); GLUCOSE, FASTING 212 MG/DL (70-100); POTASSIUM SERUM 3.5 MEQ/L (3.5-5.1); SODIUM LEVEL 139 MEQ/L (136-145)
[2018-05-21] MEDS: ERTAPENEM SODIUM 1 GM in NS MINI-BAG PLUS 50 ML IV SCH (13:00)
[2018-05-21] MEDS ORDERED: INSULIN HUMAN REGULAR IV SCH (18:00)
[2018-05-21] MEDS ORDERED: FAT EMULSION IV 20% 500 ML IV SCH (18:00)
[2018-05-21] MEDS ORDERED: DEX IV SCH (18:00)
[2018-05-21] MEDS ORDERED: CALC IV SCH (18:00)
[2018-05-21] MEDS ORDERED: AMINO AC/ELECTROLYTE/DEX/CALC 2,000 ML IV SCH (18:00)
[2018-05-21] MEDS ORDERED: AMINO AC IV SCH (18:00)
[2018-05-21] MEDS ORDERED: ELECTROLYTE IV SCH (18:00)
[2018-05-21] MEDS ORDERED: LEVEMIR (INSULIN DETEMIR) 1 UNITS/0.01ML SC ONE (23:30)
[2018-05-22] MEDS: IPRATROPIUM 0.5MG/ALBUTEROL 2.5MG INH SOL UD 3ML (DUONEB)(J7620) NEB SCH ×4 (00:49→20:00)
[2018-05-22] MEDS: HumaLOG INSULIN (NovoLOG) PER UNIT SC SCH ×4 (01:12→18:03)
[2018-05-22 02:00] VITALS: BP 148/66
[2018-05-22] MEDS: SODIUM CHLORIDE 0.9% INJ 10 ML SYR IV SCH ×2 (05:53→18:00)
[2018-05-22 06:00] VITALS: BP 130/60
[2018-05-22] MEDS: ACETAMINOPHEN TAB 650MG DOSE (2X325MG) PO PRN (06:14)
[2018-05-22 06:33] LABS: HEMATOCRIT 40.1 % (36.0-47.0); HEMOGLOBIN 12.8 g/dl (12.0-15.5); MEAN CORPUSCULAR HEMOGLOBIN 29.2 pg (27.0-33.0); MEAN CORPUSCULAR HGB CONC 31.9 g/dl (32.0-36.5); MEAN CORPUSCULAR VOLUME 91.6 fl (80.0-96.0); PLATELET COUNT, AUTOMATED 233 10^3/uL (150-450); RED BLOOD COUNT 4.38 10^6/uL (4.00-5.40); WHITE BLOOD COUNT 10.6 10^3/uL (4.0-10.0)
[2018-05-22 06:56] LABS: BLOOD UREA NITROGEN 23 MG/DL (7-18); CALCIUM LEVEL 8.7 MG/DL (8.8-10.2); CARBON DIOXIDE LEVEL 25 MEQ/L (21-32); CHLORIDE LEVEL 105 MEQ/L (98-107); CREATININE FOR GFR 0.88 MG/DL (0.55-1.30); GLOMERULAR FILTRATION RATE > 60.0 (>32); GLUCOSE, FASTING 239 MG/DL (70-100); POTASSIUM SERUM 3.9 MEQ/L (3.5-5.1); SODIUM LEVEL 138 MEQ/L (136-145)
[2018-05-22] MEDS: LEVEMIR (INSULIN DETEMIR) 1 UNITS/0.01ML SC SCH (08:35)
[2018-05-22] MEDS: PANTOPRAZOLE 40MG INJ (PROTONIX) (C9113) IV SCH (08:35)
[2018-05-22 10:00] VITALS: BP 146/74
--- NOTE | 2018-05-22 10:49 | IPNPDOC ---
Subjective Date Seen The patient was seen on 05/22/18. 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 Complains of abdominal pain only when she is moving around or bending down. No fever or chills, no chest pain or sob . Objective Physical Examination General Exam: Positive: Alert, Cooperative, No Acute Distress Eye Exam: Positive: PERRLA, Conjunctiva & lids normal ENT Exam: Positive: Mucous membr. moist/pink Chest Exam: Positive: Clear to auscultation; Negative: Rales, Rhonchi, Wheezing, Diminished Heart Exam: Positive: Normal S1, Normal S2; Negative: Gallops, Murmurs, Rubs Abdomen Exam: Positive: Normal bowel sounds, Soft, Other (g-tube without edema swelling or pus/blood exudation); Negative: Tenderness, Hepatospenomegaly Extremity Exam: Negative: Edema Skin Exam: Positive: Other skin issue (draining samina diaz with serosanguineaous fluid, clean and intact peg tube site without pus or blood exudation or erythema) Psych Exam: Positive: Mental status NL Assessment /Plan Assessment 87 y/o female with DM, HTN, Achalasia, presented to the hospital for 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 Tried this with bowel rest and TPN and npo status for several days. And the drainage had stopped and it looked like that the fistula had closed but after restarting gastrostomy feeding fistula drainage again started and the epigastric hernia again reappeared so it was felt that surgical repair of the hernia and closure of the fistula is required. Hospitalist service was consulted for preop clearance. Epigastric hernia from the first gastrostomy site and gastrocutaneous fistula s/p on 05/19/15 On TPN started on tube feeding from 05/21/17 DM2 patients BS have not been controlled in house due to TPN. Now getting 83 units of regular insulin in the TPN bag so the sugars are much better controlled mostly in 200s will continue with only 10 units of levemir in the am patient has been started on tube feeding also HTN BP again starting to rise will start home med at lower dose ramipril 5 mg daily. 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 post op pain mgmt per surgery GERD/N/V c/w Zofran and pantoprazole Plan/VTE VTE Prophylaxis Ordered?: Yes VS, I&O, 24H, Fishbone Vital Signs/I&O Vital Signs Date Time Temp Pulse Resp B/P (MAP) Pulse Ox O2 Delivery O2 Flow Rate FiO2 05/22/18 06:00 97.6 78 19 130/60 (83) 96 Room Air 05/19/18 13:20 2 I&O- Last 24 Hours up to 6 AM 05/22/18 06:00 Intake Total 1240 ml Output Total 1221 ml Balance 19 ml Laboratory Data 24H LABS Laboratory Tests 2 05/21/18 11:58: Bedside Glucose (Misc Panel) 290H 05/21/18 17:34: Bedside Glucose (Misc Panel) 156H 05/21/18 20:23: Bedside Glucose (Misc Panel) 177H 05/22/18 00:28: Bedside Glucose (Misc Panel) 228H 05/22/18 06:09: Nucleated Red Blood Cells % (auto) 0.0, Bedside Glucose (Misc Panel) 234H, Anion Gap 8, Glomerular Filtration Rate > 60.0, Blood Urea Nitrogen 23H, Creatinine 0.88, Sodium Level 138, Potassium Level 3.9, Chloride Level 105, Carbon Dioxide Level 25, Calcium Level 8.7L CBC/BMP Laboratory Tests 05/22/18 06:09 Red Blood Count 4.38, Mean Corpuscular Volume 91.6, Mean Corpuscular Hemoglobin 29.2, Mean Corpuscular Hemoglobin Concent 31.9 L, Red Cell Distribution Width 12.9, Calcium Level 8.7 L ESTEE LIRA MD May 22, 2018 10:49
[2018-05-22] MEDS: ERTAPENEM SODIUM 1 GM in NS MINI-BAG PLUS 50 ML IV SCH (12:24)
[2018-05-22 14:00] VITALS: BP 140/70
[2018-05-22] MEDS: RAMIPRIL 5 MG CAP PO SCH (21:45)
[2018-05-22 22:00] VITALS: BP 130/70
[2018-05-23] VITALS (7 sets, daily range): BP systolic 116–132; BP diastolic 60–81
[2018-05-23] MEDS: HumaLOG INSULIN (NovoLOG) PER UNIT SC SCH ×4 (00:13→16:52)
[2018-05-23] MEDS: IPRATROPIUM 0.5MG/ALBUTEROL 2.5MG INH SOL UD 3ML (DUONEB)(J7620) NEB SCH ×4 (02:00→22:52)
[2018-05-23] MEDS: SODIUM CHLORIDE 0.9% INJ 10 ML SYR IV SCH ×2 (05:18→17:18)
[2018-05-23] MEDS: SODIUM CHLORIDE 0.9% INJ 10 ML SYR IV PRN (05:19)
[2018-05-23 06:38] LABS: HEMATOCRIT 33.8 % (36.0-47.0); MEAN CORPUSCULAR HEMOGLOBIN 29.4 pg (27.0-33.0); MEAN CORPUSCULAR HGB CONC 32.5 g/dl (32.0-36.5); MEAN CORPUSCULAR VOLUME 90.4 fl (80.0-96.0); PLATELET COUNT, AUTOMATED 217 10^3/uL (150-450); RED BLOOD COUNT 3.74 10^6/uL (4.00-5.40); WHITE BLOOD COUNT 11.7 10^3/uL (4.0-10.0)
[2018-05-23 06:49] LABS: BLOOD UREA NITROGEN 27 MG/DL (7-18); CARBON DIOXIDE LEVEL 25 MEQ/L (21-32); CHLORIDE LEVEL 103 MEQ/L (98-107); CREATININE FOR GFR 0.84 MG/DL (0.55-1.30); GLOMERULAR FILTRATION RATE > 60.0 (>32); GLUCOSE, FASTING 288 MG/DL (70-100); POTASSIUM SERUM 4.6 MEQ/L (3.5-5.1); SODIUM LEVEL 136 MEQ/L (136-145)
[2018-05-23] MEDS: LEVEMIR (INSULIN DETEMIR) 1 UNITS/0.01ML SC SCH (09:42)
[2018-05-23] MEDS: PANTOPRAZOLE 40MG INJ (PROTONIX) (C9113) IV SCH (09:42)
--- NOTE | 2018-05-23 10:13 | IPNPDOC ---
Date Seen The patient was seen on 05/23/18. Progress Note SUBJECTIVE: c/o abd pain better when lying still worse when she stands and ambulates. tolerating liquids w/o n/v. bp improved. no other issues per RN. Objective Objective Physical Examination General Exam: Positive: Alert, Cooperative, No Acute Distress Eye Exam: Positive: PERRLA, Conjunctiva & lids normal ENT Exam: Positive: Mucous membr. moist/pink Chest Exam: Positive: Clear to auscultation; Negative: Rales, Rhonchi, Wheezing, Diminished Heart Exam: Positive: Normal S1, Normal S2; Negative: Gallops, Murmurs, Rubs Abdomen Exam: Positive: Normal bowel sounds, Soft, Other (g-tube without edema swelling or pus/blood exudation); Negative: Tenderness, Hepatospenomegaly Extremity Exam: Negative: Edema Skin Exam: Positive: Other skin issue (draining samina diaz with serosa nguineaous fluid, clean and intact peg tube site without pus or blood exudation or erythema) Psych Exam: Positive: Mental status NL Assessment/Plan Assessment /Plan Assessment 87 y/o female with DM, HTN, Achalasia, presented to the hospital for 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 Tried this with bowel rest and TPN and npo status for several days. And the drainage had stopped and it looked like that the fistula had closed but after restarting gastrostomy feeding fistula drainage again started and the epigastric hernia again reappeared so it was felt that surgical repair of the hernia and closure of the fistula is required. Hospitalist service was consulted for preop clearance. Epigastric hernia from the first gastrostomy site and gastrocutaneous fistula s/p on 05/19/15 On TPN started on tube feeding from 05/21/17 DM2 patients BS have not been controlled in house due to TPN. Now getting 83 units of regular insulin in the TPN bag so the sugars are much better controlled mostly in 200s will continue with only 10 units of levemir in the am patient has been started on tube feeding also HTN BP again starting to rise will start home med at lower dose ramipril 5 mg daily. 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 pain mgmt per surgery GERD/N/V c/w Zofran and pantoprazole Plan/VTE VTE Prophylaxis Ordered?: Yes VS, I&O, 24H, Fishbone Vital Signs/I&O Vital Signs Date Time Temp Pulse Resp B/P (MAP) Pulse Ox O2 Delivery O2 Flow Rate FiO2 05/23/18 06:00 98.2 67 20 130/62 (84) 97 Room Air 05/19/18 13:20 2 I&O- Last 24 Hours up to 6 AM 05/23/18 06:00 Intake Total 2270 ml Output Total 761 ml Balance 1509 ml Laboratory Data 24H LABS Laboratory Tests 2 05/22/18 12:02: Bedside Glucose (Misc Panel) 309H 05/22/18 17:16: Bedside Glucose (Misc Panel) 241H 05/22/18 23:40: Bedside Glucose (Misc Panel) 241H 05/23/18 05:36: Bedside Glucose (Misc Panel) 262H 05/23/18 06:16: Nucleated Red Blood Cells % (auto) 0.0, Anion Gap 8, Glomerular Filtration Rate > 60.0, Blood Urea Nitrogen 27H, Creatinine 0.84, Sodium Level 136, Potassium Level 4.6, Chloride Level 103, Carbon Dioxide Level 25, Calcium Level 8.0L CBC/BMP Laboratory Tests 05/23/18 06:16 Red Blood Count 3.74 L, Mean Corpuscular Volume 90.4, Mean Corpuscular Hemoglobin 29.4, Mean Corpuscular Hemoglobin Concent 32.5, Red Cell Distribution Width 13.2, Calcium Level 8.0 L GRABIEL MCNEAL MD May 23, 2018 10:13
[2018-05-23] MEDS: ERTAPENEM SODIUM 1 GM in NS MINI-BAG PLUS 50 ML IV SCH (12:50)
[2018-05-23] MEDS: RAMIPRIL 5 MG CAP PO SCH (20:38)
[2018-05-23] MEDS: ACETAMINOPHEN TAB 650MG DOSE (2X325MG) PO PRN (22:49)
[2018-05-24] MEDS: HumaLOG INSULIN (NovoLOG) PER UNIT SC SCH ×3 (00:21→12:19)
[2018-05-24 02:00] VITALS: BP 111/56
[2018-05-24] MEDS: IPRATROPIUM 0.5MG/ALBUTEROL 2.5MG INH SOL UD 3ML (DUONEB)(J7620) NEB SCH ×3 (04:55→13:27)
[2018-05-24 06:00] VITALS: BP 116/58
[2018-05-24] MEDS: SODIUM CHLORIDE 0.9% INJ 10 ML SYR IV SCH (06:25)
[2018-05-24] MEDS: SODIUM CHLORIDE 0.9% INJ 10 ML SYR IV PRN (06:25)
[2018-05-24 06:33] LABS: HEMATOCRIT 33.6 % (36.0-47.0); HEMOGLOBIN 10.8 g/dl (12.0-15.5); MEAN CORPUSCULAR HEMOGLOBIN 29.1 pg (27.0-33.0); MEAN CORPUSCULAR HGB CONC 32.1 g/dl (32.0-36.5); MEAN CORPUSCULAR VOLUME 90.6 fl (80.0-96.0); PLATELET COUNT, AUTOMATED 228 10^3/uL (150-450); RED BLOOD COUNT 3.71 10^6/uL (4.00-5.40); WHITE BLOOD COUNT 9.2 10^3/uL (4.0-10.0)
[2018-05-24 06:54] LABS: BLOOD UREA NITROGEN 28 MG/DL (7-18); CALCIUM LEVEL 8.5 MG/DL (8.8-10.2); CARBON DIOXIDE LEVEL 28 MEQ/L (21-32); CHLORIDE LEVEL 106 MEQ/L (98-107); CREATININE FOR GFR 0.84 MG/DL (0.55-1.30); GLOMERULAR FILTRATION RATE > 60.0 (>32); GLUCOSE, FASTING 116 MG/DL (70-100); POTASSIUM SERUM 3.8 MEQ/L (3.5-5.1); SODIUM LEVEL 140 MEQ/L (136-145)
[2018-05-24 10:00] VITALS: BP 120/70
[2018-05-24] MEDS: LEVEMIR (INSULIN DETEMIR) 1 UNITS/0.01ML SC SCH (10:13)
[2018-05-24] MEDS: PANTOPRAZOLE 40MG INJ (PROTONIX) (C9113) IV SCH (10:13)
--- NOTE | 2018-05-24 10:47 | IPNPDOC ---
Date Seen The patient was seen on 05/24/18. Progress Note SUBJECTIVE: Per the daughter at the bedside, pt has been much more comfortable. she is tolerating liquids. PT has not cleared her. She denies any nausea, vomiting, and abdominal pain is improved, but persistent, usually worse with movement. Objective Physical Examination vitals: pls see below General Exam: Positive: Alert, Cooperative, No Acute Distress Eye Exam: Positive: PERRLA, Conjunctiva & lids normal ENT Exam: Positive: Mucous membr. moist/pink Chest Exam: Positive: Clear to auscultation; Negative: Rales, Rhonchi, Wheezing, Diminished Heart Exam: Positive: Normal S1, Normal S2; Negative: Gallops, Murmurs, Rubs Abdomen Exam: Positive: Normal bowel sounds, Soft, Other (g-tube without edema swelling or pus/blood exudation); Negative: Tenderness, Hepatospenomegaly Extremity Exam: Negative: Edema Skin Exam: Positive: Other skin issue (draining samina diaz with se rosanguineaous fluid, clean and intact peg tube site without pus or blood exudation or erythema) Psych Exam: Positive: Mental status NL Laboratory data: pls see below Assessment/Plan 87 y/o female with DM, HTN, Achalasia, presented to the hospital for 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 Tried this with bowel rest and TPN and npo status for several days. And the drainage had stopped and it looked like that the fistula had closed but after restarting gastrostomy feeding fistula drainage again started and the epigastric hernia again reappeared so it was felt that surgical repair of the hernia and closure of the fistula is required. Hospitalist service was consulted for preop clearance. Epigastric hernia from the first gastrostomy site and gastrocutaneous fistula s/p on 05/19/15 On TPN started on tube feeding from 05/21/17 DM2 patients BS have not been controlled in house due to TPN. Now getting 83 units of regular insulin in the TPN bag so the sugars are much better controlled mostly in 200s will continue with only 10 units of levemir in the am patient has been started on tube feeding also HTN BP again starting to rise will start home med at lower dose ramipril 5 mg daily. 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 pain mgmt per surgery GERD/N/V c/w Zofran and pantoprazole Plan/VTE VTE Prophylaxis Ordered?: Yes disposition: defer to primary team VS, I&O, 24H, Fishbone Vital Signs/I&O Vital Signs Date Time Temp Pulse Resp B/P (MAP) Pulse Ox O2 Delivery O2 Flow Rate FiO2 05/24/18 10:00 97.9 84 18 120/70 (87) 97 Room Air 05/19/18 13:20 2 I&O- Last 24 Hours up to 6 AM 05/24/18 06:00 Intake Total 297 ml Output Total 850 ml Balance -553 ml Laboratory Data 24H LABS Laboratory Tests 2 05/23/18 11:45: Bedside Glucose (Misc Panel) 264H 05/23/18 16:49: Bedside Glucose (Misc Panel) 99 05/24/18 00:16: Bedside Glucose (Misc Panel) 293H 05/24/18 05:23: Nucleated Red Blood Cells % (auto) 0.0, Anion Gap 6L, Glomerular Filtration Rate > 60.0, Blood Urea Nitrogen 28H, Creatinine 0.84, Sodium Level 140, Potassium Level 3.8, Chloride Level 106, Carbon Dioxide Level 28, Calcium Level 8.5L 05/24/18 06:16: Bedside Glucose (Misc Panel) 133H CBC/BMP Laboratory Tests 05/24/18 05:23 Red Blood Count 3.71 L, Mean Corpuscular Volume 90.6, Mean Corpuscular Hemoglo bin 29.1, Mean Corpuscular Hemoglobin Concent 32.1, Red Cell Distribution Width 13.4, Calcium Level 8.5 L GRABIEL MCNEAL MD May 24, 2018 10:47
[2018-05-24] MEDS: ERTAPENEM SODIUM 1 GM in NS MINI-BAG PLUS 50 ML IV SCH (12:19)
--- NOTE | 2018-06-09 16:57 | DSES ---
DATE OF ADMISSION: 05/10/2018 DATE OF DISCHARGE: 05/24/2018 PRINCIPAL DIAGNOSIS: Gastric fistula. ASSOCIATED DIAGNOSESS: 1. History of achalasia. 2. History of gastrostomy tube. 3. History of epigastric hernia. BRIEF HISTORY OF PRESENT ILLNESS: The patient is an 87-year-old female who developed a gastrocutaneous fistula status post gastrostomy tube. The patient had the gastrostomy tube placed at an outside hospital and thus a second gastrostomy tube was placed given that there was a new hernia developing at that initial gastrostomy site. However, the patient developed a gastrocutaneous fistula and presents for treatment of this. HOSPITAL COURSE SUMMARY: The patient was kept nothing by mouth, IV fluids and total parenteral nutrition (TPN), and eventually the patient had some significant improvement of the drainage and it stopped for about 24 hours and then after that, the patient's gastrostomy (G) tube was clamped and then the next 24 hours later, she was started on a clear liquid diet. However, then she developed recurrence of her drainage via the fistula and was brought to the operating room on 05/19/2018 where she underwent repair of this gastrocutaneous fistula, essentially a small resection of the stomach and repair of the epigastric hernia. The patient tolerated this quite well and postoperatively was extremely slow to recover from her anesthesia and overall her general medical issues. Eventually, she was discharged home on the usual medications which include Tylenol for discomfort, glipizide, Nystatin for topical rash, ramipril, Januvia, insulin injections and tramadol. The patient was instructed to followup in my office in one week for suture removal, sooner if there is any question, concerns, fevers, chills, and followup with her primary care as needed.
--- NOTE | 2018-06-09 17:00 | RO ---
DATE OF PROCEDURE: 05/19/2018 PREOPERATIVE DIAGNOSIS: 1. Gastric fistula. 2. Epigastric hernia. POSTOPERATIVE DIAGNOSIS 1. Gastric fistula. 2. Epigastric hernia. OPERATIVE PROCEDURE: 1. Repair of gastric fistula. 2. Repair of epigastric hernia with mesh. SURGEON: Cas Ortega MD SPORTS PSYCHOLOGIST: ANESTHESIA: General endotracheal anesthesia. ESTIMATED BLOOD LOSS: Minimal. FLUIDS: Crystalloid BRIEF PROCEDURE SUMMARY: The patient was taken to the operating room, was given general anesthesia. After adequate anesthesia and preoperative antibiotics were given the patient was prepped and draped in the usual sterile fashion. Next, an elliptical incision overlying the gastric fistula/hernia was made with skin knife. Electrocautery was used cut through dermis, underlying subcutaneous tissue and the gastric fistula/stomach itself was followed along its length and mobilized off the fascia itself and eventually a tongue of the stomach could be appreciated going up to this fistula and I was able to mobilize this adequately, so I could take a [place] green load and transect the stomach in this area and a small portion of the stomach was resected. The staple line was imbricated using #3-0 Vicryl and good hemostasis was achieved. However, the fascial defect was rather large still and thus the epigastric hernia needed to be repaired as well. The epigastric hernia was repaired first closing this transversely, but the fascial defect was probably about 4-5 cm in diameter. I was able to place a ventral patch intraperitoneally and laterally the rectus muscle was splayed out to the sides but this is where it was good rectus muscle posterior and anterior fascia and thus [id number] Ethibond sutures were used to close the sutures. The tails of mesh were actually were sutured to the superior and inferior aspect of the fascial closure as well. This came together quite nicely without undue stress. The area was infiltrated with Exparel and the skin was then approximated with ryan over a #15 [place] drain given that there was a relatively large space associated with the hernia that was present. The patient was awakened, extubated, brought to the recovery room awake, alert, hemodynamically stable. Sponge and needle counts correct times two.
== END 2018-05-24 14:10 | disposition home or self-care (01) | DRG 327 ==
LOC: M MSPAV 09:38
PROVIDERS: ADMIT Surgery; ATTEND Surgery
PROC: 0WUF0JZ Supplement Abdominal Wall with Synthetic Substitute, Open Approach (ICD-10-PCS; 2018-05-19)
PROC: 0DQ60ZZ Repair Stomach, Open Approach (ICD-10-PCS; principal; 2018-05-19 12:30)
DX: K94.29 Other complications of gastrostomy (principal); K31.6 Fistula of stomach and duodenum; K43.9 Ventral hernia without obstruction or gangrene; I10 Essential (primary) hypertension; E11.9 Type 2 diabetes mellitus without complications; I25.10 Atherosclerotic heart disease of native coronary artery without angina pectoris; Z95.0 Presence of cardiac pacemaker; Z79.899 Other long term (current) drug therapy; E78.5 Hyperlipidemia, unspecified; G89.29 Other chronic pain

== ENCOUNTER → 2018-05-29 | Outpatient (REF) | payer MEDICARE, MEDICAID ==
[~2018-05-29] MED LIST changes: +CHIL1SUS2 PEG; +GLIP10TA6 PEG; +LIDO2.5C15 TOP; -METOCLOPRAMIDE INJ 10MG/2ML VIAL (J2765) IV PRN; +NYST1POW9 TOP; -ONDANSETRON 4MG/2ML VIAL (J2405) IV PRN; -PROMETHAZINE INJ 25 MG/ML VIAL (J2550) IV PRN; +RAMI1CAP26 PEG; +SITA50TAB PEG; +TRAM50TA2 PEG
== END ==
LOC: M LAB REF 16:36
PROVIDERS: ATTEND Nurse Practitioner Adult Health
DX: R41.0 Disorientation, unspecified (principal)

== ENCOUNTER → 2022-03-23 | Outpatient (CLI) | payer MEDICARE, MEDICAID ==
[~2022-03-23] MED LIST changes: +LIDO1CRE42 TOP; -LIDO2.5C15 TOP
== END ==
LOC: M RAD 17:38
PROVIDERS: ATTEND Nurse Practitioner Adult Health
DX: M25.552 Pain in left hip (principal); M85.88 Other specified disorders of bone density and structure, other site; I70.228 Atherosclerosis of native arteries of extremities with rest pain, other extremity

== ENCOUNTER → 2022-03-26 | Outpatient (CLI) | payer MEDICARE, MEDICAID | LOC: M RAD 13:58 | PROVIDERS: ATTEND Nurse Practitioner Adult Health | DX: S32.592A Other specified fracture of left pubis, initial encounter for closed fracture (principal); K57.32 Diverticulitis of large intestine without perforation or abscess without bleeding ==

== ENCOUNTER 2022-05-22 23:25 | Inpatient (IN) | payer MEDICARE, MEDICAID ==
[2022-05-23 00:12] LABS: VENOUS BASE EXCESS 2.9 (-2.0-2.0); VENOUS O2 SATURATION 93.6 % (60.0-80.0); VENOUS PARTIAL PRESSURE CO2 38.2 mmHg (38.0-50.0); VENOUS PARTIAL PRESSURE O2 64.3 mmHg (30.0-50.0); VENOUS PH 7.467 UNITS (7.330-7.430); VENOUS STANDARD HCO3 27.1 MEQ/L; VENOUS TOTAL CO2 28.2 MEQ/L (24.0-28.0)
[2022-05-23 00:25] LABS: BASO % 0.2 % (0.0-1.0); EOS # 0.2 10^3/uL (0.0-0.5); EOS % 1.9 % (0.0-3.0); HEMATOCRIT 36.9 % (36.0-47.0); HEMOGLOBIN 11.9 g/dl (12.0-15.5); LYMPH # 0.9 10^3/uL (1.5-5.0); LYMPH % 10.3 % (24.0-44.0); MEAN CORPUSCULAR HEMOGLOBIN 28.8 pg (27.0-33.0); MEAN CORPUSCULAR HGB CONC 32.2 g/dl (32.0-36.5); MEAN CORPUSCULAR VOLUME 89.3 fl (80.0-96.0); MONO # 0.8 10^3/uL (0.0-0.8); MONO % 8.9 % (2.0-8.0); NEUTROPHILS % 76.9 % (36.0-66.0); PLATELET COUNT, AUTOMATED 231 10^3/uL (150-450); RED BLOOD COUNT 4.13 10^6/uL (4.00-5.40); WHITE BLOOD COUNT 9.1 10^3/uL (4.0-10.0)
[2022-05-23 00:47] LABS: CK-MB VALUE MASS < 1.0 NG/ML (<3.6); HEMOGLOBIN A1c 8.6 % (4.0-6.0); LIPASE 40 U/L (12-53)
[2022-05-23 00:48] LABS: MAGNESIUM LEVEL 2.4 MG/DL (1.8-2.4)
[2022-05-23 00:49] LABS: ALBUMIN 3.2 G/DL (3.2-5.2); ALKALINE PHOSPHATASE 79 U/L (46-116); ALT/SGPT 30 U/L (7.0-40); AST/SGOT 30 U/L (<34); BILIRUBIN,DIRECT 0.1 MG/DL (<0.4); BILIRUBIN,TOTAL 0.4 MG/DL (0.3-1.2); BLOOD UREA NITROGEN 53 MG/DL (9-23); CALCIUM LEVEL 8.8 MG/DL (8.3-10.6); CARBON DIOXIDE LEVEL 26 MMOL/L (20-31); CHLORIDE LEVEL 98 MMOL/L (98-107); CREATININE FOR GFR 0.94 MG/DL (0.55-1.30); GLOMERULAR FILTRATION RATE 59.7 (>32); GLUCOSE, FASTING 368 MG/DL (74-106); POTASSIUM SERUM 5.7 MMOL/L (3.5-5.1); SODIUM LEVEL 131 MMOL/L (136-145); TOTAL PROTEIN 7.3 G/DL (5.7-8.2)
[2022-05-23 01:24] LABS: OSMOLALITY SERUM 307 MOSM/KG (280-301)
[2022-05-23 01:25] LABS: CPK CREATINE PHOSPHOKINASE 38 U/L (34-145); MB/CK RELATIVE INDEX 2.63 (< OR =4)
[2022-05-23] MEDS ORDERED: DOXYCYCLINE HYCLATE 100 MG in D5W MINI-BAG PLUS 100 ML IV ONE (02:30)
[2022-05-23] MEDS ORDERED: cefTRIAXone SOD 1 GM in D5W MINI-BAG PLUS 50 ML IV ONE (02:30)
[2022-05-23] MEDS ORDERED: QUET1TAB17 PEG (02:55)
[2022-05-23] MEDS ORDERED: ACET-683 PEG (02:55)
[2022-05-23] MEDS ORDERED: TRAZ-252 PEG (02:55)
[2022-05-23] MEDS ORDERED: HOME MED LIST COMPLETE! XX SCH (03:00)
[2022-05-23] MEDS ORDERED: OLANZapine INTRAMUSCULAR 10MG VIAL IM PRN (03:50)
[2022-05-23] MEDS ORDERED: GLUCAGON INJ 1MG VIAL SC PRN (03:50)
[2022-05-23] MEDS ORDERED: DEXTROSE 50% 50ML SYRINGE IV PRN (03:50)
[2022-05-23] MEDS ORDERED: GLUCOSE 4GM CHEW TABLET PO PRN (03:50)
[2022-05-23] MEDS ORDERED: NS 1,000 ML IV SCH (04:55)
[2022-05-23 06:47] LABS: BLOOD UREA NITROGEN 42 MG/DL (9-23); CALCIUM LEVEL 8.8 MG/DL (8.3-10.6); CARBON DIOXIDE LEVEL 27 MMOL/L (20-31); CHLORIDE LEVEL 97 MMOL/L (98-107); CREATININE FOR GFR 0.87 MG/DL (0.55-1.30); GLOMERULAR FILTRATION RATE > 60.0 (>32); GLUCOSE, FASTING 336 MG/DL (74-106); POTASSIUM SERUM 4.9 MMOL/L (3.5-5.1); SODIUM LEVEL 133 MMOL/L (136-145)
[2022-05-23] MEDS ORDERED: INSULIN LISPRO (NovoLOG) PER UNIT SC SCH ×2 (07:30→21:00)
[2022-05-23] MEDS ORDERED: LABETALOL 100MG/20ML VIAL IV PRN (07:45)
[2022-05-23 07:58] VITALS: BP 154/88
[2022-05-23] MEDS: HEPARIN SOD (PORCINE) 5000UNITS/ML 1ML VIAL/SYRINGE SC SCH ×2 (08:53→20:19)
[2022-05-23] MEDS ORDERED: LEVEMIR (INSULIN DETEMIR) 1 UNITS/0.01ML SC SCH ×2 (09:00)
[2022-05-23] MEDS: ACETAMINOPHEN TAB 650MG DOSE (2X325MG) PEG PRN ×2 (11:03→17:46)
[2022-05-23] MEDS: INSULIN LISPRO (NovoLOG) PER UNIT SC SCH ×3 (12:08→23:59)
[2022-05-23] MEDS: DOXYCYCLINE HYCLATE 100 MG in D5W MINI-BAG PLUS 100 ML IV SCH (15:19)
[2022-05-23 15:40] VITALS: BP 148/72
[2022-05-23 16:15] VITALS: BP 118/66
[2022-05-23 20:08] VITALS: BP 142/58
[2022-05-23] MEDS: QUEtiapine FUMARATE 25 MG TAB PEG SCH (20:19)
[2022-05-23] MEDS ORDERED: traZODone 50 MG TAB PEG SCH (21:00)
[2022-05-23] MEDS ORDERED: RAMELTEON 8 MG TAB (ROZEREM) PO PRN (21:55)
[2022-05-23] MEDS ORDERED: PILL CUTTER 1 EACH XX PRN (22:10)
[2022-05-24] MEDS ORDERED: cefTRIAXone SOD 1 GM in D5W MINI-BAG PLUS 50 ML IV SCH (03:00)
[2022-05-24] MEDS: DOXYCYCLINE HYCLATE 100 MG in D5W MINI-BAG PLUS 100 ML IV SCH (03:45)
[2022-05-24 06:00] VITALS: BP 148/62
[2022-05-24 06:04] LABS: BASO % 0.3 % (0.0-1.0); EOS # 0.2 10^3/uL (0.0-0.5); EOS % 3.1 % (0.0-3.0); HEMATOCRIT 35.3 % (36.0-47.0); HEMOGLOBIN 11.3 g/dl (12.0-15.5); LYMPH % 13.1 % (24.0-44.0); MEAN CORPUSCULAR HEMOGLOBIN 28.8 pg (27.0-33.0); MEAN CORPUSCULAR VOLUME 90.1 fl (80.0-96.0); MONO # 0.8 10^3/uL (0.0-0.8); MONO % 10.4 % (2.0-8.0); NEUTROPHILS # 5.6 10^3/uL (1.5-8.5); NEUTROPHILS % 71.3 % (36.0-66.0); PLATELET COUNT, AUTOMATED 307 10^3/uL (150-450); RED BLOOD COUNT 3.92 10^6/uL (4.00-5.40); WHITE BLOOD COUNT 7.9 10^3/uL (4.0-10.0)
[2022-05-24 06:26] LABS: BLOOD UREA NITROGEN 25 MG/DL (9-23); CALCIUM LEVEL 8.7 MG/DL (8.3-10.6); CARBON DIOXIDE LEVEL 24 MMOL/L (20-31); CHLORIDE LEVEL 102 MMOL/L (98-107); CREATININE FOR GFR 0.68 MG/DL (0.55-1.30); GLOMERULAR FILTRATION RATE > 60.0 (>32); GLUCOSE, FASTING 189 MG/DL (74-106); POTASSIUM SERUM 5.1 MMOL/L (3.5-5.1); SODIUM LEVEL 135 MMOL/L (136-145)
[2022-05-24] MEDS: INSULIN LISPRO (NovoLOG) PER UNIT SC SCH ×2 (06:31→12:24)
[2022-05-24] MEDS ORDERED: amLODIPine 5 MG TAB PEG SCH (09:00)
[2022-05-24] MEDS: HEPARIN SOD (PORCINE) 5000UNITS/ML 1ML VIAL/SYRINGE SC SCH (09:08)
[2022-05-24] MEDS: QUEtiapine FUMARATE 25 MG TAB PEG SCH ×2 (09:08→15:14)
[2022-05-24 09:11] VITALS: BP 156/81
[2022-05-24 14:00] VITALS: BP 155/79
[2022-05-24] MEDS ORDERED: ATROPINE SULFATE 1% OPHTH SOLN 2ML BTL SL PRN (16:55)
[2022-05-24] MEDS ORDERED: ONDANSETRON 4MG 2ML VIAL IV PRN (16:55)
[2022-05-24] MEDS: QUEtiapine FUMARATE 25 MG TAB PO SCH (21:05)
[2022-05-25] MEDS: QUEtiapine FUMARATE 25 MG TAB PO SCH (09:00)
[2022-05-25] MEDS: MORPHINE 2 MG/ML 1ML VIAL IV PRN ×3 (11:05→22:01)
[2022-05-25] MEDS: LORazepam 2 MG/ML VIAL IV PRN (21:01)
[2022-05-26] MEDS: MORPHINE 2 MG/ML 1ML VIAL IV PRN ×3 (07:38→13:06)
[2022-05-26] MEDS: LORazepam 2 MG/ML VIAL IV PRN ×3 (11:03→22:29)
[2022-05-27] MEDS: MORPHINE 2 MG/ML 1ML VIAL IV PRN ×2 (01:00→04:45)
[2022-05-27] MEDS: MORPHINE 10MG/0.5ML ORAL CONCENTRATE SOLUTION U/D SL PRN ×6 (05:07→21:05)
[2022-05-27] MEDS: LORazepam 1 MG TAB PO PRN ×4 (08:59→21:05)
[2022-05-28] MEDS: LORazepam 1 MG TAB PO PRN ×6 (00:19→23:34)
[2022-05-28] MEDS: MORPHINE 10MG/0.5ML ORAL CONCENTRATE SOLUTION U/D SL PRN ×6 (00:19→23:34)
[2022-05-29] MEDS: MORPHINE 10MG/0.5ML ORAL CONCENTRATE SOLUTION U/D SL PRN ×5 (06:23→22:20)
[2022-05-29] MEDS: LORazepam 1 MG TAB PO PRN ×5 (06:23→22:20)
[2022-05-29] MEDS: SCOPOLAMINE 1MG TRANSDERMAL PATCH TOP PRN (23:50)
[2022-05-30] MEDS: LORazepam 1 MG TAB PO PRN ×4 (10:39→20:18)
[2022-05-30] MEDS: MORPHINE 10MG/0.5ML ORAL CONCENTRATE SOLUTION U/D SL PRN ×4 (10:40→20:18)
[2022-05-31] MEDS: MORPHINE 10MG/0.5ML ORAL CONCENTRATE SOLUTION U/D SL PRN ×6 (02:07→23:28)
[2022-05-31] MEDS: LORazepam 1 MG TAB PO PRN ×2 (02:07→15:56)
[2022-06-01] MEDS: MORPHINE 10MG/0.5ML ORAL CONCENTRATE SOLUTION U/D SL PRN ×2 (15:33→22:03)
[2022-06-01] MEDS: SCOPOLAMINE 1MG TRANSDERMAL PATCH TOP PRN (23:54)
[2022-06-02] MEDS: MORPHINE 10MG/0.5ML ORAL CONCENTRATE SOLUTION U/D SL PRN (14:48)
== END 2022-06-02 15:55 | disposition expired | DRG 177 ==
LOC: EDBD 23:25 → M ED 23:25 → M ED INP 05-23 03:48 → ENRESERV 05-23 15:31 → M MSPAV 05-23 16:00
PROVIDERS: ADMIT Internal Medicine; ATTEND General Practice
DX: U07.1 COVID-19 (principal); J12.82 Pneumonia due to coronavirus disease 2019; G93.41 Metabolic encephalopathy; J15.9 Unspecified bacterial pneumonia; E87.1 Hypo-osmolality and hyponatremia; J98.11 Atelectasis; E11.65 Type 2 diabetes mellitus with hyperglycemia; I10 Essential (primary) hypertension; F03.90 Unspecified dementia, unspecified severity, without behavioral disturbance, psychotic disturbance, mood disturbance, and anxiety; R41.0 Disorientation, unspecified; E87.5 Hyperkalemia; Z51.5 Encounter for palliative care; Z66 Do not resuscitate; I16.0 Hypertensive urgency; M25.561 Pain in right knee; M25.562 Pain in left knee; R29.6 Repeated falls; R53.81 Other malaise; K22.0 Achalasia of cardia; Z93.1 Gastrostomy status; Z95.0 Presence of cardiac pacemaker; Z90.49 Acquired absence of other specified parts of digestive tract; Z79.4 Long term (current) use of insulin; Z79.899 Other long term (current) drug therapy